=== PATIENT | male | born 1975 | race Caucasian/White ===

== ENCOUNTER → 2019-03-30 | Outpatient (CLI) | payer OTHER | LOC: COL.RAD 15:00 | DX: N20.2 Calculus of kidney with calculus of ureter (principal) ==

== ENCOUNTER 2020-01-12 13:33 | Emergency (ER) | payer OTHER ==
[~2020-01-12] VITALS: Ht 167.6 cm; Wt 87.3 kg
[2020-01-12 13:44] VITALS: TEMP 97.9
[2020-01-12 17:35] VITALS: BP 135/86; PULSE 71
== END 2020-01-12 17:36 | disposition home or self-care (01) ==
LOC: COL.ER 13:33
DX: S83.91XA Sprain of unspecified site of right knee, initial encounter (principal); X50.1XXA Overexertion from prolonged static or awkward postures, initial encounter; Y93.55 Activity, bike riding; Y92.89 Other specified places as the place of occurrence of the external cause
CPT/HCPCS: L1846